=== PATIENT | male | born 1960 | race Caucasian/White ===

== ENCOUNTER 2018-03-04 09:44 | Emergency (ER) | payer OTHER ==
[2018-03-04 09:57] VITALS: BP 159/78
--- NOTE | 2018-03-04 10:10 | EDPHY ---
H & P Stated Complaint: LEFT SIDED FACIAL SWELLING FOR PAST 30 MINUTES Time Seen by Provider: 03/04/18 10:01 HPI/ROS: CHIEF COMPLAINT: Left cheek swelling HISTORY OF PRESENT ILLNESS: The patient is a 57-year-old man who over the last 2-3 hours has noticed some swelling just anterior to his left ear. It is not painful. It is not erythematous or warm. No fever. No recent illness. No sore throat. No difficulty breathing. No headache or vision changes. REVIEW OF SYSTEMS: Constitutional: denies: chills, fever, recent illness, recent injury EENTM: See HPI denies: blurred vision, double vision, nose congestion Respiratory: denies: cough, shortness of breath Cardiac: denies: chest pain, irregular heart rate, lightheadedness, palpitations Gastrointestinal/Abdominal: denies: abdominal pain, diarrhea, nausea, vomiting, blood streaked stools Genitourinary: denies: dysuria, frequency, hematuria, pain Musculoskeletal: denies: joint pain, muscle pain Skin: denies: lesions, rash, jaundice, bruising Neurological: denies: headache, numbness, paresthesia, tingling, dizziness, weakness Hematologic/Lymphatic: denies: blood clots, easy bleeding, easy bruising Immunologic/allergic: denies: HIV/AIDS, transplant EXAM: GENERAL: Well-appearing, well-nourished and in no acute distress. HEAD: Atraumatic, normocephalic. EYES: Pupils equal round and reactive to light, extraocular movements intact, sclera anicteric, conjunctiva are normal. ENT: Patient has swelling to his left parotid gland, no tenderness or erythema. No fluctuance. TMs normal, nares patent, oropharynx clear without exudates. Moist mucous membranes. Left Stensen's duct palpated, small lump rather proximally. NECK: Normal range of motion, supple without lymphadenopathy or JVD. LUNGS: Breath sounds clear to auscultation bilaterally and equal. No wheezes rales or rhonchi. HEART: Regular rate and rhythm without murmurs, rubs or gallops. ABDOMEN: Soft, nontender, normoactive bowel sounds. No guarding, no rebound. No masses appreciated. BACK: No CVA tenderness, no spinal tenderness, step-offs or deformities EXTREMITIES: Normal range of motion, no pitting or edema. No clubbing or cyanosis. NEUROLOGICAL: Cranial nerves II through XII grossly intact. Normal speech, normal gait. 5/5 strength, normal movement in all extremities, normal sensation PSYCH: Normal mood, normal affect. SKIN: Warm, dry, normal turgor, no visible rashes or lesions. 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 HTN - Family History Significant Family History: No pertinent family hx - Social History Smoking Status: Never smoked Alcohol Use: None Constitutional: Initial Vital Signs Temperature (C) 36.7 C 03/04/18 09:54 Heart Rate 82 03/04/18 09:54 Respiratory Rate 16 03/04/18 09:54 Blood Pressure 159/78 H 03/04/18 09:54 O2 Sat (%) 94 03/04/18 09:54 O2 Delivery Mode Room Air Allergies/Adverse Reactions: No Known Allergies Allergy (Verified 03/04/18 09:59) Home Medications: Medication Instructions Recorded Atorvastatin Calcium 03/04/18 Carbatrol 03/04/18 Lisinopril 03/04/18 Medical Decision Making ED Course/Re-evaluation: Patient clinically has a salivary duct stone. We discussed lemon drops and secretagogue and I will refer him to ENT he if it is not improved with conservative treatment. He and his are happy with this plan. No signs of stroke or Simental's palsy. No obvious dental infection. Differential Diagnosis: Partial list of the Differential diagnosis considered include but were not limited to; salivary duct stone, parotiditis, and although unlikely based on the history and physical exam, I also considered abscess, dental infection. I discussed these differential diagnoses and the plan with the patient as well as the usual and expected course. The patient understands that the diagnosis is provisional and that in medicine we are not always correct and that further workup is often warranted. Usual and customary warnings were given. All of the patient's questions were answered. The patient was instructed to return to the emergency department should the symptoms at all worsen or return, otherwise to followup with the physician as we discussed. Departure - Departure Disposition: Home, Routine, Self-Care Clinical Impression: Salivary duct stone Condition: Good Instructions: Parotid Duct Obstruction (ED) Additional Instructions: Use lemon drops or other secretagogue every hour to attempt expulsion of the parotid duct stone. Referrals: NONE *PRIMARY CARE P,. [Primary Care Provider] - As per Instructions Dorcas Franklin MD [Medical Doctor] - As per Instructions
== END 2018-03-04 10:19 | disposition home or self-care (01) ==
DX: K11.5 Sialolithiasis (principal); I25.2 Old myocardial infarction; I10 Essential (primary) hypertension